=== PATIENT | female | born 1995 | race Caucasian/White ===

== ENCOUNTER 2021-08-10 16:16 | Observation (INO) | payer OTHER, SELFPAY ==
--- NOTE | 2021-08-10 16:16 | OBADM ---
This patient, Santana Robison, admitted to the OB room [facility] for observation. Patient/family oriented to hospital policies and general routines including ID bracelet, bed and alarms, visiting hours, pain management, procedures, bathroom and other care routines, personal items, smoking policy, room service/diet, and visiting hours. Patient/Family are encouraged to report perceived risks to care and to ask questions if they do not understand what they are told or what they should do.
[2021-08-10] MEDS: FAMOTIDINE 20 MG/2 ML VIAL IV PUSH (17:13)
[2021-08-10] MEDS: ONDANSETRON INJ 4 MG/2 ML VIAL IV PUSH ×2 (17:13→23:37)
[2021-08-10] MEDS: DEXTROSE 5%/0.45% SOD CHL 1,000 ML 999 ML IV CONT (17:16)
[2021-08-10 17:23] LABS: Basophils Percent Auto 0.3 % (0.2-1.2); Eosinophils Percent Auto 0.2 % (0-4.4); Hematocrit 38.9 % (37.0-47.0); Hemoglobin 13.4 g/dL (12.0-15.0); Immature Granulocyte Absolute 0.04 K/mm3 (0.00-0.031); Immature Granulocyte Percent A 0.3 % (0-0.5); Lymphocytes Absolute Auto 2.47 K/mm3 (0.9-3.2); Mean Corpuscular HGB Conc 34.4 g/dl (32-36); Mean Corpuscular Hemoglobin 30.2 pg (26-34); Mean Corpuscular Volume 87.8 fl (80-100); Mean Platelet Volume 10.2 fl (7.4-10.4); Monocytes Absolute Auto 0.9 K/mm3 (0.1-0.6); Monocytes Percent Auto 7.4 % (2.6-8.5); Neutrophils Absolute Auto 8.3 K/mm3 (1.3-6.7); Neutrophils Percent Auto 70.8 % (45.5-73.1); Platelet Count Result 313 k/mm3 (150-375); Red Blood Count 4.43 M/mm3 (4.2-5.4); Red Cell Distribution Width 13.1 % (11.5-14.5); White Blood Count 11.7 K/mm3 (4.5-10.0)
[2021-08-10 17:29] VITALS: BP 111/72; PULSE 63; RESP 20; TEMP 36.5
[2021-08-10 17:36] LABS: Alanine Aminotransferase 52 U/L (4-35); Albumin Level 4.3 g/dL (3.5-5.1); Alkaline Phosphatase 91 U/L (38-126); Anion Gap 12 mmol/L (8-16); Aspartate Amino Transferase 43 U/L (14-36); Bilirubin,Total 0.6 mg/dL (0.2-1.3); Blood Urea Nitrogen 8 mg/dL (7-17); Calcium 9.5 mg/dL (8.4-10.2); Carbon Dioxide 19 mmol/L (22-30); Chloride 105 mmol/L (98-107); Estimated Glomerular Filt Rate > 60; Glucose 80 mg/dL (65-110); Potassium 3.3 mmol/L (3.4-5.0); Sodium 136 mmol/L (137-145)
[2021-08-10 17:42] VITALS: BMI 30.8
[2021-08-10 18:17] LABS: HIV 1/2 Ab P24 Ag Result Negative (Negative)
[2021-08-10] MEDS: DEXTROSE 5%/0.45% SOD CHL 1,000 ML 200 ML IV CONT (18:18)
[2021-08-10 18:27] LABS: Hepatitis B Surface Antigen Negative (Negative); Rubella IgG Antibody 37.5 IU/ML
[2021-08-10 18:44] LABS: Add Urine Microscopic? YES; Appearance Urine Clear (Clear); Bilirubin Urine Negative (Negative); Blood Urine Negative (Negative); Color Urine Yellow (Yellow); Glucose Urine UA 3+ mg/dL (Negative); Ketones Urine 1+ mg/dL (Negative); Leukocyte Esterase Ur Negative LEU/UL (Negative); Mucus Urine Rare /lpf; Nitrate Urine Negative (Negative); Protein Urine Negative (Negative); RBC Urine 0-2 /hpf (0-2); Specific Grav Ur 1.016 (1.001-1.035); Squamous Epithelial Cell Urine Occasional /hpf (Few); Urobilinogen Urine Negative mg/dL (<2.0); WBC Urine 0-3 /hpf
--- NOTE | 2021-08-10 18:58 | PC.NURSE ---
Dr. López in the department- labs reviewed- update given on pt. order received for D5 1/2NS with 40 KCl x 1 bag. will continue to monitor pt and Dr. López will see her in the morning. continue with plan of care
[2021-08-10] MEDS: KCL 40 MEQ/D5 1/2NS 1,000 ML 100 ML IV CONT (19:52)
--- NOTE | 2021-08-10 20:26 | PM.IMHP ---
H&P: HPI History of Present Illness Date/Time: 08/10/21 20:11 Santana is a 26yo @ 8.5wks (SULAIMAN [birth year]) who presents to L&D for admission of NVOP. She presented to clinic today and reported that she has not been able to keep anything down; not even water, for the last 4 days. She had only voided once today. She has been vomiting so frequently that her throat is very sore and she think she may have vomited up a small amount of blood. She has been taking B6 and Promethazine for NVOP. She is prescribed abilify and prozac for bipolar, anxiety and depression, but has not been taking them. She reports some cramping, no bleeding. 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 tri losses (MFM eval pending) Chief Complaint: vomiting Review of Systems Review of Systems: All systems reviewed & are unremarkable except as noted in HPI and below (HPI) Meds Home Medications and Allergies Home Medications Medication Instructions Recorded Confirmed Type PNV cmb#95-ferrous fumarate-FA 1 tablet PO DAILY 08/10/21 08/10/21 History [] famotidine 20 mg PO DAILY 08/10/21 08/10/21 History Allergies Allergy/AdvReac Type Severity Reaction Status Date / Time acetaminophen [From Percocet] Allergy Chest Pain Verified 08/10/21 17:26 oxycodone [From Percocet] Allergy Chest Pain Verified 08/10/21 17:26 sertraline [From Zoloft] Allergy Chest Pain Verified 08/10/21 17:26 Vital Signs Vital Signs - 24 hr 08/10/21 17:29 Temperature 36.5 C Pulse Rate 63 Respiratory Rate 20 Blood Pressure 111/72 Exam Const: General: cooperative, in distress (actively vomiting in clinic) and ill appearing Resp: Effort & Inspection: normal respiratory effort Cardio: Rate: regular rate GI: Inspection: non-distended GI Palp: No abdominal tenderness and Yes Soft to palpation : Other: +FHTs obtained on bedside US in clinic Skin: General skin exam: normal color Neuro: General: patient oriented x3 Psych: Appearance: grossly normal Affect: normal affect Attitude: cooperative H&P: Results Labs Labs: Short CBC 08/10/21 Range/Units 17:09 WBC 11.7 H (4.5-10.0) K/mm3 Hgb 13.4 (12.0-15.0) g/dL Hct 38.9 (37.0-47.0) % Plt Count 313 (150-375) k/mm3 BMP 08/10/21 17:08 Sodium 136 L Potassium 3.3 L Chloride 105 Carbon Dioxide 19 L BUN 8 Creatinine 0.60 L Glucose 80 Calcium 9.5 Liver Function 08/10/21 Range/Units 17:08 Total Bilirubin 0.6 (0.2-1.3) mg/dL AST 43 H (14-36) U/L ALT 52 H (4-35) U/L Alkaline Phosphatase 91 (38-126) U/L Albumin 4.3 (3.5-5.1) g/dL Urine 08/10/21 Range/Units 18:23 Urine Color Yellow (Yellow) Urine Appearance Clear (Clear) Urine pH 6.0 (5.0-9.0) Ur Specific [place] 1.016 (1.001-1.035) Urine Protein Negative (Negative) mg/dL Urine Glucose (UA) 3+ H (Negative) mg/dL Assessment and Plan Assessment and plan (1) Hyperemesis: Code(s): R11.10 - Vomiting, unspecified Status: Acute Assessment and Plan: - Admit to L&D overnight - IV fluids w/ destrose + 40mcg KCL - Pepcid, zofran, B6 + benadryl - Advance diet slowly; discussed snacking/small frequent bland diet - Plan for possible d/c home tomorrow (will need to take B6 + unisom QID, pepcid daily, + zofran or promethazine PRN)
[2021-08-10] MEDS: PYRIDOXINE HCL 25 MG TABLET PO (21:11)
--- NOTE | 2021-08-10 21:16 | PC.NURSE ---
pt doing well. pt states that she is feeling better and is able to get some sleep.
[2021-08-10 23:37] VITALS: BP 89/55; PULSE 78
[2021-08-10 23:40] VITALS: BP 103/54; PULSE 68; TEMP 36.6
[2021-08-11 04:30] VITALS: BP 99/61; PULSE 69; RESP 18; TEMP 36.6
[2021-08-11 04:33] VITALS: RESP 18; TEMP 36.6
[2021-08-11] MEDS: ONDANSETRON INJ 4 MG/2 ML VIAL IV PUSH (06:27)
[2021-08-11] MEDS: FAMOTIDINE 20 MG/2 ML VIAL IV PUSH (06:27)
[2021-08-11 06:28] VITALS: BP 99/65; PULSE 68; RESP 18; TEMP 36.4
[2021-08-11] MEDS: PYRIDOXINE HCL 25 MG TABLET PO (06:48)
[2021-08-11] MEDS: diphenhydrAMINE HCL ELIXIR 12.5 MG/5 ML UDC PO (06:48)
--- NOTE | 2021-08-11 07:53 | PM.OBPNVD ---
OB - PN: Subj Subjective Date/time seen: 08/11/21 07:53 Santana is a @ 8.6wks admitted with NVOP. She reports doing well overnight; no vomiting. She feels much better today. She reports mild nausea, no vomiting. She has tolerated some regular diet; ordered breakfast. She reports abdominal cramping as she has not had a BM in a few days. She is passing gas. She denies uterine cramping, VB, fever, chills, BEE, vision changes, vomting, dysuria. She has a psych appointment today in [facility] @ 2pm and does not want to miss that appointment. OB - PN: Obj Data Labs CBC & Chem 7: 08/10/21 17:09 08/10/21 17:08 Labs: Laboratory Results - last 24 hr 08/10/21 08/10/21 08/10/21 17:08 17:09 17:09 WBC 11.7 H RBC 4.43 Hgb 13.4 Hct 38.9 MCV 87.8 MCH 30.2 MCHC 34.4 RDW 13.1 Plt Count 313 MPV 10.2 Immature Gran % (Auto) 0.3 Neut % (Auto) 70.8 Lymph % (Auto) 21.0 [place] % (Auto) 7.4 Eos % (Auto) 0.2 Baso % (Auto) 0.3 Lymph # (Auto) 2.47 [place] # (Auto) 0.9 H Eos # (Auto) 0.0 Baso # (Auto) 0.0 Abs Immat Gran (auto) 0.04 H Absolute Neuts (auto) 8.3 H Absolute Nucleated RBC 0.0 Nucleated RBC % 0.0 Sodium 136 L Potassium 3.3 L Chloride 105 Carbon Dioxide 19 L Anion Gap 12 BUN 8 Creatinine 0.60 L Estim Creat Clear Calc Not Reportable Estimated GFR > 60 Glucose 80 Calcium 9.5 Total Bilirubin 0.6 AST 43 H ALT 52 H Alkaline Phosphatase 91 Total Protein 7.0 Albumin 4.3 Beta HCG, Quant Urine Color Urine Appearance Urine pH Ur Specific [place] Urine Protein Urine Glucose (UA) Urine Ketones Ur Blood (Man) Urine Nitrate Urine Bilirubin Urine Urobilinogen Leukocyte Esterase Rfl Urine RBC Urine WBC Ur Squamous Epith Cells Urine Mucus Hep Bs Antigen Negative HIV 1&2 Ab/P24 Ag 4thGn Rubella IgG Antibody 37.5 Blood Type Antibody Screen 08/10/21 08/10/21 08/10/21 17:09 17:09 17:10 WBC RBC Hgb Hct MCV MCH MCHC RDW Plt Count MPV Immature Gran % (Auto) Neut % (Auto) Lymph % (Auto) [place] % (Auto) Eos % (Auto) Baso % (Auto) Lymph # (Auto) [place] # (Auto) Eos # (Auto) Baso # (Auto) Abs Immat Gran (auto) Absolute Neuts (auto) Absolute Nucleated RBC Nucleated RBC % Sodium Potassium Chloride Carbon Dioxide Anion Gap BUN Creatinine Estim Creat Clear Calc Estimated GFR Glucose Calcium Total Bilirubin AST ALT Alkaline Phosphatase Total Protein Albumin Beta HCG, Quant 049942.00 Urine Color Urine Appearance Urine pH Ur Specific [place] Urine Protein Urine Glucose (UA) Urine Ketones Ur Blood (Man) Urine Nitrate Urine Bilirubin Urine Urobilinogen Leukocyte Esterase Rfl Urine RBC Urine WBC Ur Squamous Epith Cells Urine Mucus Hep Bs Antigen HIV 1&2 Ab/P24 Ag 4thGn Negative Rubella IgG Antibody Blood Type O Positive Antibody Screen Negative 08/10/21 18:23 WBC RBC Hgb Hct MCV MCH MCHC RDW Plt Count MPV Immature Gran % (Auto) Neut % (Auto) Lymph % (Auto) [place] % (Auto) Eos % (Auto) Baso % (Auto) Lymph # (Auto) [place] # (Auto) Eos # (Auto) Baso # (Auto) Abs Immat Gran (auto) Absolute Neuts (auto) Absolute Nucleated RBC Nucleated RBC % Sodium Potassium Chloride Carbon Dioxide Anion Gap BUN Creatinine Estim Creat Clear Calc Estimated GFR Glucose Calcium Total Bilirubin AST ALT Alkaline Phosphatase Total Protein Albumin Beta HCG, Quant Urine Color Yellow Urine Appearance Clear Urine pH 6.0 Ur Specific [place] 1.016 Urine Protein Negative Urine Glucose (UA) 3+ H Urine Ketones 1+ H Ur Blood (Man) Negative Urine Nitrate Negative Urine B
[2021-08-11] MEDS: polyethylene glycoL 3350 17 GM POWD.PACK PO (08:08)
--- NOTE | 2021-08-11 09:30 | PC.NURSE ---
IVF bag ran out. Pt asking to go home. Preparing dc paperwork now.
[2021-08-13 13:04] LABS: Varicella IgG Antibody <135.00 Index (>=165.00); Varicella IgM Antibody <=0.90 (<=0.90)
== END 2021-08-11 09:44 | disposition home or self-care (01) ==
PROVIDERS: Admitting Provider Obstetrics & Gynecology; Visit Provider Obstetrics & Gynecology
DX: O21.0 Mild hyperemesis gravidarum (principal); O99.341 Other mental disorders complicating pregnancy, first trimester; F41.8 Other specified anxiety disorders; Z3A.08 8 weeks gestation of pregnancy
CPT/HCPCS: 36415; 80053; 81001; 84702; 85025; 86703; 86747; 86762; 86787; 86850; 86900; 86901; 87086; 87088; 87340; 96361; 96365; 96366; 96375; 96376; A9270; G0378; G0379; G0432; J2405; J3480

== ENCOUNTER 2022-09-22 20:08 | Emergency (ER) | payer OTHER, SELFPAY ==
[2022-09-22 20:13] VITALS: BP 143/93; PULSE 88; RESP 18; TEMP 36.3; O2SAT 100
[2022-09-22 22:19] VITALS: BP 119/90; PULSE 69; RESP 14; O2SAT 100
--- NOTE | 2022-09-22 23:28 | ED.DENTAL ---
HPI - Dental/Oral General Chief complaint: Dental/Oral Stated complaint: DENTAL PAIN Time Seen by Provider: 09/22/22 22:45 Source: patient Mode of arrival: ambulatory Limitations: no limitations History of Present Illness HPI Narrative: Patient presents to the emergency department for dentalgia noted since last night. Reports she recently had a filling in this tooth. She has been having sharp pain since last night. Denies fever, swelling. MD Complaint: tooth pain Location: Tooth # (15) Related Data Home Medications Medication Instructions Recorded Confirmed famotidine 20 mg tablet 20 mg PO DAILY 08/10/21 12/08/21 vit no.95-ferrous 1 tablet PO DAILY 08/10/21 12/08/21 fumarate 28 mg-folic acid 800 mcg tablet () aspirin 81 mg tablet,delayed 81 mg PO DAILY 12/08/21 12/08/21 release (Adult Aspirin Regimen) Allergies Allergy/AdvReac Type Severity Reaction Status Date / Time acetaminophen [From Percocet] Allergy Chest Pain Verified 12/08/21 11:06 oxycodone [From Percocet] Allergy Chest Pain Verified 12/08/21 11:06 sertraline [From Zoloft] Allergy Chest Pain Verified 12/08/21 11:06 Review of Systems Review of Systems: CONSTITUTIONAL: Denies fever ENT: Reports dentalgia All systems reviewed & are unremarkable except as noted in HPI and below PMFSH Past Medical History Medical History Anxiety Depression PTSD (post-traumatic stress disorder) Surgical History Surgical History History of ankle surgery History of dilation and curettage (~2018) History of tonsillectomy Family History Family History Father Mental disorder Grandparent Schizophrenia Sibling Bipolar 1 disorder Social History Social History (Updated 12/08/21 @ 11:07 by Shyanne Sharp MA) Smoking status: Never smoker Alcohol intake: never Substance use: never Gender identity (if verbalized by the patient): Female Sexual Orientation (if Verbalized by the Patient): Straight or Heterosexual Exam Narrative: GENERAL: Well-appearing, well-nourished, and in no acute distress. HEAD: Normocephalic, atraumatic. EYES: EOMI. ENT: Mucous membranes moist. Oropharynx without tonsillar hypertrophy exudate or other lesions. Tooth #15 tender to palpation without surrounding erythema or fluctuance to suggest abscess NECK: Supple. No adenopathy or masses CHEST: Clear to auscultation. No respiratory distress. No wheezes rales or rhonchi HEART: Regular rate and rhythm. No murmur heard. Normal peripheral pulses. EXTREMITIES: Normal range of motion. No edema. SKIN: Warm, dry, no rash. NEURO: No focal deficits. Alert and oriented x3. PSYCH: Normal mood and affect Course Vital Signs Vital signs: Vital Signs Temperature 97.3 F L 09/22/22 20:13 Pulse Rate 88 09/22/22 20:13 Respiratory Rate 18 09/22/22 20:13 Blood Pressure 143/93 H 09/22/22 20:13 Pulse Oximetry 100 09/22/22 20:13 Oxygen Delivery Room Air 09/22/22 20:13 Temperature 97.3 F L 09/22/22 20:13 Pulse Rate 69 09/22/22 22:19 Respiratory Rate 14 09/22/22 22:19 Blood Pressure 119/90 09/22/22 22:19 Pulse Oximetry 100 09/22/22 22:19 Oxygen Delivery Room Air 09/22/22 20:13 MDM - Dental/Oral MDM Narrative Medical decision making narrative: Patient presents emergency department for dentalgia ongoing since last night. She is afebrile and nontoxic-appearing. No evidence for abscess on exam. Will be started on Augmentin and instructed to have follow-up with her dentist. She was given warnings to return to the ER Critical Care Time Critical Care Time Critical Care Time: No Discharge Plan Discharge Clinical Impression: Toothache Patient Disposition: Home, Self-Care Condition: Stable Instructions: Antibiotic Form, Toothache (ED) Additional Instructions:
[2022-09-22] MEDS: KETOROLAC 30 MG/ML VIAL (*BKC) IM (23:41)
[2022-09-22 23:51] VITALS: BP 138/78; PULSE 70; RESP 14; O2SAT 100
== END 2022-09-22 23:53 | disposition home or self-care (01) ==
PROVIDERS: Emergency Provider Emergency Medicine
DX: K08.89 Other specified disorders of teeth and supporting structures (principal)
CPT/HCPCS: 96372; 99283; J1885

== ENCOUNTER 2022-10-16 07:36 | Emergency (ER) | payer OTHER, SELFPAY ==
[2022-10-16] VITALS (14 sets, daily range): BP systolic 96–121; BP diastolic 49–78; PULSE 100–119; RESP 14–20; TEMP 37.1–38.2; O2SAT 96–100
--- NOTE | ~2022-10-16 | XR_ITS ---
EXAMINATION: XR chest 1V portable DATE: 10/16/2022 09:41 INDICATION: Cough and fever. TECHNIQUE: A single frontal view of the chest was obtained. COMPARISON: Chest 2 views 07/28/2015, CT abdomen and pelvis 10/16/2022 FINDINGS: There is mild atelectasis in left lower lung zone. No pleural effusion or pneumothorax. The heart size is normal. IMPRESSION: 1. Mild atelectasis in left lower lung zone. Reviewed, dictated and finalized at location A. [employer]IVE [employer] HELPER
--- NOTE | ~2022-10-16 | CT_ITS ---
EXAMINATION: CT abdomen pelvis w con DATE: 10/16/2022 09:23 INDICATION: Body aches. Lower abdominal pain. TECHNIQUE: Computed tomography (CT) of the abdomen and pelvis was performed with 100 cc Omnipaque 350 intravenous contrast. The dose-length product was 741.17 mGy-cm. Automated exposure control and iter ative reconstruction technique were employed. COMPARISON: None. FINDINGS: Lung bases are unremarkable. Heart size normal. No significant pleural or pericardial effus ion. Fatty infiltration of the liver. The spleen, pancreas, adrenal glands and kidneys are unremarkab le. Gallbladder is present. There is an IUD in the uterus. No significant vascular abnormality. Mildl y prominent ileocolic lymph nodes, likely reactive.. No abnormal pelvic masses or fluid collections. Nonobstructive bowel gas pattern. No free air or free fluid. Normal appendix. No evidence for diverti culitis. No acute osseous abnormality. No focal lytic or blastic lesions. IMPRESSION: 1. No acute abdominal abnormality. Reviewed, dictated and finalized at location B. COLLECTOR
[2022-10-16 08:07] LABS: Appearance Urine Clear (Clear); Bilirubin Urine 1+ (Negative); Blood Urine Negative (Negative); Color Urine Yellow (Yellow); Glucose Urine UA Negative (Negative); Ketones Urine Trace mg/dL (Negative); Leukocyte Esterase Ur Negative LEU/UL (Negative); Nitrate Urine Negative (Negative); Protein Urine 1+ mg/dL (Negative); Urobilinogen Urine 0.2 mg/dL (<2.0)
[2022-10-16 08:08] LABS: Basophils Percent Auto 0.2 % (0.2-1.2); Hematocrit 38.8 % (37.0-47.0); Hemoglobin 13.2 g/dL (12.0-15.0); Immature Granulocyte Absolute 0.23 K/mm3 (0.00-0.031); Immature Granulocyte Percent A 1.4 % (0-0.5); Lymphocytes Absolute Auto 0.66 K/mm3 (0.9-3.2); Lymphocytes Percent Auto 4.1 % (18.3-44.2); Mean Corpuscular Hemoglobin 29.2 pg (26-34); Mean Corpuscular Volume 85.8 fl (80-100); Mean Platelet Volume 10.6 fl (7.4-10.4); Monocytes Absolute Auto 0.9 K/mm3 (0.1-0.6); Monocytes Percent Auto 5.9 % (2.6-8.5); Neutrophils Absolute Auto 14.1 K/mm3 (1.3-6.7); Neutrophils Percent Auto 88.4 % (45.5-73.1); Platelet Count Result 264 k/mm3 (150-375); Red Blood Count 4.52 M/mm3 (4.2-5.4); Red Cell Distribution Width 13.4 % (11.5-14.5); White Blood Count 15.9 K/mm3 (4.5-10.0)
[2022-10-16 08:22] LABS: Mucus Urine Rare /lpf; RBC Urine 0-2 /hpf (0-2); Squamous Epithelial Cell Urine Many /hpf (Few); WBC Urine 0-3 /hpf
[2022-10-16 08:24] LABS: Add Urine Microscopic? YES
[2022-10-16 08:24] LABS: Alanine Aminotransferase 19 U/L (6-35); Albumin Level 4.4 g/dL (3.5-5.1); Alkaline Phosphatase 103 U/L (38-126); Anion Gap 11 mmol/L (8-16); Aspartate Amino Transferase 39 U/L (14-36); Bilirubin,Total 0.6 mg/dL (0.2-1.3); Blood Urea Nitrogen 13 mg/dL (7-17); Calcium 8.7 mg/dL (8.4-10.2); Carbon Dioxide 22 mmol/L (22-30); Chloride 105 mmol/L (98-107); Estimated CRCL calculation 89 ml/min; Estimated Glomerular Filt Rate > 60; Glucose 119 mg/dL (65-110); Lipase 54 U/L (23-300); Potassium 4.4 mmol/L (3.4-5.0); Sodium 138 mmol/L (137-145)
[2022-10-16 08:41] LABS: Influenza A QL RT-PCR Negative (Negative); Influenza B QL RT-PCR Negative (Negative); SARS-CoV-2 RNA PCR Negative
--- NOTE | 2022-10-16 09:10 | ED.NAVMDI ---
HPI - Nausea/Vomiting/Diarrhea General Chief complaint: Nausea/Vomiting/Diarrhea Stated complaint: vomiting, body aches, headache Time Seen by Provider: 10/16/22 08:54 History of Present Illness HPI Narrative: 27-year-old female here for evaluation of nausea, vomiting and body aches for the past 3 days. Patient states that her daughter is sick with similar symptoms. States that her symptoms began with body aches and generalized malaise 3 days ago, has since progressed. Patient states she is vomited 8 times since last evening. Additionally notes productive cough, congestion, sore throat, lower abdominal pain. Patient has not taken her temperature. No chest pain, shortness of breath, syncope. No history of abdominal surgeries. Related Data Home Medications Medication Instructions Recorded Confirmed famotidine 20 mg tablet 20 mg PO DAILY 08/10/21 12/08/21 vit no.95-ferrous 1 tablet PO DAILY 08/10/21 12/08/21 fumarate 28 mg-folic acid 800 mcg tablet () aspirin 81 mg tablet,delayed 81 mg PO DAILY 12/08/21 12/08/21 release (Adult Aspirin Regimen) Allergies Allergy/AdvReac Type Severity Reaction Status Date / Time acetaminophen [From Percocet] Allergy Chest Pain Verified 10/16/22 08:38 oxycodone [From Percocet] Allergy Chest Pain Verified 10/16/22 08:38 sertraline [From Zoloft] Allergy Chest Pain Verified 10/16/22 08:38 Review of Systems Review of Systems: Gen.: Reports chills Eyes: Denies eye pain or visual change ENT: Reports congestion Respiratory: Denies shortness of breath or cough CV: Denies chest pain or palpitations GI: Reports abdominal pain, nausea and vomiting. Denies diarrhea denies burning, urgency, frequency or hematuria Musculoskeletal: Denies back pain or muscle pain Neuro: Denies numbness, tingling, weakness or focal weakness Skin: Denies rash Except as documented, all other systems reviewed and negative [facility] Past Medical History Medical History Anxiety Depression PTSD (post-traumatic stress disorder) Surgical History Surgical History History of ankle surgery History of dilation and curettage (~2018) History of tonsillectomy Family History Family History Father Mental disorder Grandparent Schizophrenia Sibling Bipolar 1 disorder Social History Social History (Updated 12/08/21 @ 11:07 by Shyanne Sharp MA) Smoking status: Never smoker Alcohol intake: never Substance use: never Gender identity (if verbalized by the patient): Female Sexual Orientation (if Verbalized by the Patient): Straight or Heterosexual Exam Narrative: APPEARANCE: Uncomfortable appearing Head: Normocephalic and atraumatic. EYES: PERRLA/EOMI, conjunctivae clear NOSE: No nasal drainage EARS: External ear normal in appearance THROAT: Mucous membranes are dry. Oropharynx is clear. NECK: Supple. No adenopathy, no masses. RESPIRATORY: Airway patent, respirations nonlabored. Clear to auscultation bilaterally, no rales, rhonchi, wheezing. CARDIOVASCULAR: Regular rate and rhythm without murmurs, rubs, or gallops. ABDOMINAL: Tender to palpation in suprapubic region. Normoactive bowel sounds. Soft, nontender, nondistended. No rebound tenderness or guarding. MUSCULOSKELETAL: Extremities are warm and well-perfused. Moves all extremities well. No edema. NEURO: Normal speech. No focal neurologic deficits. SKIN: Skin is warm and dry. No rashes. PSYCHIATRIC: Normal affect/mood.. Course Vital Signs Vital signs: Vital Signs Temperature 100.7 F H 10/16/22 07:40 Pulse Rate 119 H 10/16/22 07:40 Respiratory Rate 18 10/16/22 07:40 Blood Pressure 116/78 10/16/22 07:40 Pulse Oximetry 99 10/16/22 07:40 Oxygen Delivery Room Air 10/16/22 07:40 Temperature 100.7 F H 10/16/22 07:40 Pulse Rate 102 H
[2022-10-16] MEDS: ONDANSETRON INJ 4 MG/2 ML VIAL IV PUSH (09:11)
[2022-10-16] MEDS: SODIUM CHLORIDE 0.9% IV 1,000 ML 999 ML IV CONT ×2 (09:12→09:32)
[2022-10-16] MEDS: FAMOTIDINE 20 MG/2 ML VIAL IV PUSH (09:31)
[2022-10-16 10:32] LABS: Lactic Acid Reflex 0.9 mmol/L (0.7-2.0)
== END 2022-10-16 11:31 | disposition home or self-care (01) ==
PROVIDERS: Physician Assistant; Emergency Provider Emergency Medicine
DX: K52.9 Noninfective gastroenteritis and colitis, unspecified (principal); Z20.822 Contact with and (suspected) exposure to COVID-19; Z79.82 Long term (current) use of aspirin
CPT/HCPCS: 36415; 71045; 74177; 80053; 81001; 81025; 83605; 83690; 85025; 87636; 96361; 96374; 96375; 99284; J0131; J2405; J7030; Q9967

== ENCOUNTER 2023-08-31 11:36 | Emergency (ER) | payer OTHER, SELFPAY ==
[2023-08-31] VITALS (8 sets, daily range): BP systolic 100–124; BP diastolic 70–88; PULSE 81–127; RESP 16; TEMP 36.6–37.6; O2SAT 95–100
--- NOTE | ~2023-08-31 | XR_ITS ---
Clinical Indication: Fever PA and lateral views of the chest: Comparison: 10/16/2022 Findings: The lungs are clear, without evidence of focal consolidation or pleural effusion. Cardiome diastinal silhouette is within normal limits. Bones and soft tissues are unremarkable. Impression: Normal chest. Reviewed, dictated and finalized at location . Impression: Normal chest.
[2023-08-31] MEDS: SODIUM CHLORIDE 0.9% IV 1,000 ML 999 ML IV CONT (12:25)
[2023-08-31] MEDS: diphenhydrAMINE HCl INJ 50 MG/ML VIAL 25 MG IV PUSH (12:29)
[2023-08-31] MEDS: METOCLOPRAMIDE HCL INJ 10 MG/2 ML VIAL IV PUSH (12:30)
[2023-08-31] MEDS: HYDROcodone/acetaminophen (*CRX) 5-325 MG TABLET 1 TAB PO (12:31)
[2023-08-31] MEDS: KETOROLAC 30 MG/ML VIAL (*BKC) IV PUSH (12:31)
[2023-08-31 12:39] LABS: Appearance Urine Clear (Clear); Bilirubin Urine Negative (Negative); Blood Urine Negative (Negative); Color Urine Yellow (Yellow); Glucose Urine UA Negative (Negative); Ketones Urine Negative (Negative); Leukocyte Esterase Ur Negative LEU/UL (Negative); Nitrate Urine Negative (Negative); Protein Urine Negative (Negative); Specific Grav Ur 1.014 (1.001-1.035); Urobilinogen Urine 0.2 mg/dL (<2.0); pH Urine 8.5 (5.0-9.0)
[2023-08-31 12:45] LABS: Lactic Acid Reflex 0.8 mmol/L (0.7-2.0)
[2023-08-31 12:47] LABS: Alanine Aminotransferase 19 U/L (6-35); Albumin Level 4.1 g/dL (3.5-5.1); Alkaline Phosphatase 76 U/L (38-126); Anion Gap 7 mmol/L (8-16); Aspartate Amino Transferase 24 U/L (14-36); Bilirubin,Total 0.6 mg/dL (0.2-1.3); Blood Urea Nitrogen 12 mg/dL (7-17); CRP 5.3 mg/dL (<1.0); Calcium 8.9 mg/dL (8.4-10.2); Carbon Dioxide 25 mmol/L (22-30); Chloride 104 mmol/L (98-107); Estimated CRCL calculation 91 ml/min; Estimated Glomerular Filt Rate > 60; Glucose 93 mg/dL (65-110); Potassium 4.4 mmol/L (3.4-5.0); Sodium 136 mmol/L (137-145)
[2023-08-31 12:52] LABS: Prothrombin Time 13.7 Seconds (11.1-14.7)
[2023-08-31 12:53] LABS: Partial Thromboplastin Time 31.6 SECONDS (22.3-36.8)
[2023-08-31 12:56] LABS: Basophils Absolute Auto 0.1 K/mm3 (0.0-0.1); Basophils Percent Auto 0.5 % (0.2-1.2); Eosinophils Percent Auto 0.3 % (0-4.4); Hematocrit 38.6 % (37.0-47.0); Hemoglobin 12.9 g/dL (12.0-15.0); Immature Granulocyte Absolute 0.04 K/mm3 (0.00-0.031); Immature Granulocyte Percent A 0.4 % (0-0.5); Lymphocytes Absolute Auto 1.19 K/mm3 (0.9-3.2); Lymphocytes Percent Auto 10.7 % (18.3-44.2); Mean Corpuscular HGB Conc 33.4 g/dl (32-36); Mean Corpuscular Hemoglobin 29.7 pg (26-34); Mean Corpuscular Volume 88.9 fl (80-100); Monocytes Absolute Auto 0.9 K/mm3 (0.1-0.6); Monocytes Percent Auto 7.7 % (2.6-8.5); Neutrophils Absolute Auto 8.9 K/mm3 (1.3-6.7); Neutrophils Percent Auto 80.4 % (45.5-73.1); Platelet Count Result 253 k/mm3 (150-375); Red Blood Count 4.34 M/mm3 (4.2-5.4); Red Cell Distribution Width 12.4 % (11.5-14.5); White Blood Count 11.1 K/mm3 (4.5-10.0)
[2023-08-31 13:06] LABS: Add Urine Microscopic? NO
[2023-08-31 13:17] LABS: Influenza A QL RT-PCR Negative (Negative); Influenza B QL RT-PCR Negative (Negative); SARS-CoV-2 RNA PCR Negative (Negative)
--- NOTE | 2023-08-31 14:05 | ED.FEVER ---
HPI - Fever General Chief Complaint: Fever Stated Complaint: post op fever and pain Time Seen by Provider: 08/31/23 12:02 Source: patient and RN notes reviewed Mode of arrival: ambulatory Limitations: no limitations History of Present Illness HPI Narrative: This is a 28 year old female who presents for evaluation of fever. PAtient states she had a hemorrhoid removed on Sunday at the [facility]. She reports developing fever 101F last night. She also reports chills, body aches, low back pain. She reports mild pain from her hemorrhoid but no bleeding. She also reports migraine headache that is typical for her. She denies chest pain, shortness of breath, abdominal pain, diarrhea, nausea, vomiting or urinary symptoms. Related Data Home Medications Medication Instructions Recorded Confirmed famotidine 20 mg tablet 20 mg PO DAILY 08/10/21 12/08/21 vit no.95-ferrous 1 tablet PO DAILY 08/10/21 12/08/21 fumarate 28 mg-folic acid 800 mcg tablet () aspirin 81 mg tablet,delayed 81 mg PO DAILY 12/08/21 12/08/21 release (Adult Aspirin Regimen) Allergies Allergy/AdvReac Type Severity Reaction Status Date / Time acetaminophen [From Percocet] Allergy Chest Pain Verified 10/16/22 08:38 oxycodone [From Percocet] Allergy Chest Pain Verified 10/16/22 08:38 sertraline [From Zoloft] Allergy Chest Pain Verified 10/16/22 08:38 Review of Systems Constitutional: Constitutional: Reports fever(s) and Denies weakness Cardiovascular: Cardiovascular: Denies syncope, Denies rapid heart rate, Denies irregular heart rhythm, Denies leg edema and Denies dyspnea Respiratory: Respiratory: Denies chest congestion, Denies hemoptysis, Denies excessive phlegm production and Denies dyspnea Gastrointestinal: Gastrointestinal: Denies abdominal pain, Denies hematochezia, Denies diarrhea and Denies vomiting Genitourinary: Genitourinary: Denies hematuria and Denies dysuria Musculoskeletal: Musculoskeletal: Reports back pain, Reports myalgias, Denies joint swelling, Denies loss of height and Denies muscle weakness Neurologic: Denies syncope, Denies focal weakness and Denies weakness PMFSH Past Medical History Medical History (Updated 09/01/23 @ 00:02 by Background Daemon) Anxiety Depression PTSD (post-traumatic stress disorder) Surgical History Surgical History (Updated 08/31/23 @ 15:53 by Amanda Herrera MD) H/O hemorrhoidectomy History of ankle surgery History of dilation and curettage (~2018) History of tonsillectomy Family History Family History Father Mental disorder Grandparent Schizophrenia Sibling Bipolar 1 disorder Social History Social History Smoking status: Never smoker Alcohol intake: never Substance use: never Gender identity (if verbalized by the patient): Female Sexual Orientation (if Verbalized by the Patient): Straight or Heterosexual Exam Const: General: no acute distress and alert Nutritional Appearance: well nourished Orientation/consciousness: patient oriented x3 HENMT: Head: normal to inspection Eyes: EOM: EOMs intact bilaterally Neck: Neck: normal visual inspection Chest: Chest palpation & inspection: normal inspection of the chest Resp: Effort & Inspection: normal respiratory effort Auscultation: clear to auscultation bilaterally Cardio: Rate: regular rate Rhythm: regular rhythm Heart sounds: no murmurs GI: GI Palp: Yes Soft to palpation, No Tenderness to palpation present (GI), No Guarding due to palpation present (GI) and No Rigid due to palpation Auscultation: normal bowel sounds Other: small hemorrhoid seen, no bleeding, there is suture in place, no surrounding erythema or bleeding Back/Spine/Pelvis: Back: no CVA tenderness Skin: General skin exam: normal color Rashes: no rashes Neuro: General: patient oriented x3, moves all extremities and CN'
== END 2023-08-31 16:23 | disposition home or self-care (01) ==
PROVIDERS: Emergency Provider General Practice
DX: R50.82 Postprocedural fever (principal); Z20.822 Contact with and (suspected) exposure to COVID-19; Z79.82 Long term (current) use of aspirin
CPT/HCPCS: 36415; 71046; 80053; 81003; 81025; 83605; 85025; 85610; 85730; 86140; 87636; 96361; 96374; 96375; 99284; A9270; J1200; J1885; J2765; J7030